=== PATIENT | female | born 1985 | race Caucasian/White ===

== ENCOUNTER 2018-05-15 17:58 | Emergency (ER) | payer OTHER ==
[2018-05-15] MEDS ORDERED: Ketorolac 30 MG/ML SDV IVPUSH ONE (19:18)
[2018-05-15] MEDS ORDERED: Ondansetron 4 MG/2 ML SDV IVPUSH ONE (19:18)
--- NOTE | 2018-05-15 19:27 | EDM.PDOC ---
ED HPI GENERAL MEDICAL PROBLEM - General Chief Complaint: Chest Pain Stated Complaint: CHEST PAIN Time Seen by Provider: 05/15/18 18:19 Source of Information: Reports: Patient History Limitations: Reports: No Limitations - History of Present Illness INITIAL COMMENTS - FREE TEXT/NARRATIVE: 32 yo F comes in today w/ officer from half-way for evaluation of chest pain. She states the pain is constant and started today at 4:30pm, random onset and constant. She has h/o chest pain in the past but "never pain that goes to other places". She states the pain radiates from the left epigastric region to the left hip and left arm. She also complains of SOLIMAN, chills, metallic taste in her mouth, fatigue, nausea. She denies taking any new medication, change in diet, dental issues, fever, vomiting, diarrhea, sore throat, cough, or GI/ symptoms. Denies any recent trauma. Tried Naproxen earlier today with no relief. She does have a h/o CHF. Grandmother also had a h/o CHF and HI at 53yo. No other complaints at this time. Epigastric Pain Score (Numeric/FACES): 8 - Related Data Allergies Allergy/AdvReac Type Severity Reaction Status Date / Time cephalexin Allergy Cannot Verified 05/15/18 18:11 Remember Home Meds: Home Meds Docusate Sodium 100 mg PO QPM 05/15/18 [History] FLUoxetine HCl [Prozac] 40 mg PO DAILY 05/15/18 [History] Furosemide [Lasix] 20 mg PO DAILY 05/15/18 [History] Naproxen 500 mg PO BIDAC PRN 05/15/18 [History] Potassium Chloride 10 meq PO QAM 05/15/18 [History] QUEtiapine [SEROquel] 50 mg PO QAM 05/15/18 [History] QUEtiapine [SEROquel] 200 mg PO QPM 05/15/18 [History] busPIRone [Buspar] 10 mg PO BID 05/15/18 [History] hydrOXYzine pamoate [Hydroxyzine Pamoate] 50 mg PO BID 05/15/18 [History] Past Medical History Cardiovascular History: Reports: Heart Failure, High Cholesterol Gastrointestinal History: Reports: Hepatitis Other Gastrointestinal History: chronic viral hepatiits C [employer] History: Reports: - Infectious Disease History Infectious Disease History: Reports: Hepatitis C - Past Surgical History HEENT Surgical History: Reports: Tonsillectomy Other HEENT Surgeries/Procedures: wears glasses Female Surgical History: Reports: Ureteral Stent Social & Family History - Tobacco Use Smoking Status *Q: Former Smoker Used Tobacco, but Quit: Yes Month/Year Tobacco Last Used: April 2018 - Caffeine Use Caffeine Use: Reports: Coffee - Recreational Drug Use Recreational Drug Use: Yes Drug Use in Last 12 Months: Yes ED ROS GENERAL - Review of Systems Review Of Systems: ROS reveals no pertinent complaints other than HPI. ED EXAM, GENERAL - Physical Exam Exam: See Below Exam Limited By: No Limitations General Appearance: Alert, WD/WN, Mild Distress Eye Exam: Bilateral Eye: EOMI, Normal Inspection, PERRL Ears: Normal External Exam, Normal Canal, Hearing Grossly Normal Nose: Normal Inspection, Normal Mucosa, No Blood Throat/Mouth: Normal Inspection, Normal Lips, Normal Teeth, Normal Gums, Normal Oropharynx, Normal Voice, No Airway Compromise Head: Atraumatic, Normocephalic Neck: Normal Inspection, Supple, Non-Tender, Full Range of Motion Respiratory/Chest: No Respiratory Distress, Lungs Clear, Normal Breath Sounds, No Accessory Muscle Use, Chest Non-Tender Cardiovascular: Normal Peripheral Pulses, No Edema, No Gallop, No JVD, No Murmur , No Rub, Tachycardia Peripheral Pulses: 4+: Posterior Tibial (L), Posterior Tibial (R), Dorsalis Pedis (L), Dorsalis Pedis (R) GI/Abdominal: Normal Bowel Sounds, Soft, Non-Tender, No Organomegaly, No Distention, No Abnormal Bruit, No Mass Back Exam: Normal Inspection Extremities: Normal Inspection, Normal Range of Motion, Non-Tender, Normal Capillary Refill, No Pedal Edema Neurological: Alert, Oriented, CN II-XII Intact, Normal Cognition, Normal Gait, Normal Reflexes, No Motor/Sensory Deficits Psychiatric: Normal Affect, Normal Mood Skin Exam: Warm, Dry, Intact, Normal Color, No Rash EKG INTERPRETATION EKG Date: 05/15/18 Rhythm: NSR Mission: LAD-Left Mission Deviation (borderline) P-Wave: Present QRS: Normal ST-T: Normal QT: Normal Course - Vital Signs Last Recorded V/S: Last Vital Signs Temp 98.2 F 05/15/18 18:04 Pulse 82 05/15/18 18:04 Resp 18 03/07/19 18:04 BP 125/85 05/15/18 18:04 Pulse Ox 98 05/15/18 18:04 - Orders/Labs/Meds Orders: Active Orders 24 hr Category Date Time Status EKG 12 Lead [EKG Documentation Completion] [RC] URGENT Care 05/15/18 18:48 Active Chest 1V Frontal [CR] Stat Exams 05/15/18 19:17 Taken Labs: Laboratory Tests 05/15/18 05/15/18 05/15/18 Range/Units 18:40 18:40 18:40 WBC 8.19 (3.98-10.04) K/mm3 RBC 4.85 (3.98-5.22) M/mm3 Hgb 14.1 (11.2-15.7) gm/L Hct 41.6 (34.1-44.9) % MCV 85.8 (79.4-94.8) fl MCH 29.1 (25.6-32.2) pg MCHC 33.9 (32.2-35.5) g/dl RDW Std Deviation 44.5 (36.4-46.3) fL Plt Count 371 H (182-369) K/mm3 MPV 9.2 L (9.4-12.3) fl Neut % (Auto) 51.0 (34.0-71.1) % Lymph % (Auto) 34.8 (19.3-51.7) % Walton % (Auto) 9.4 (4.7-12.5) % Eos % (Auto) 4.4 (0.7-5.8) Baso % (Auto) 0.4 (0.1-1.2) % Neut # (Auto) 4.18 (1.56-6.13) K/mm3 Lymph # (Auto) 2.85 (1.18-3.74) K/mm3 Walton # (Auto) 0.77 H (0.24-0.36) K/mm3 Eos # (Auto) 0.36 (0.04-0.36) K/mm3 Baso # (Auto) 0.03 (0.01-0.08) K/mm3 Sodium 140 (136-145) mEq/L Potassium 3.7 (3.5-5.1) mEq/L Chloride 105 (98-107) mEq/L Carbon Dioxide 24 (21-32) mEq/L Anion Gap 14.7 (5-15) BUN 25 H (7-18) mg/dL Creatinine 0.8 (0.55-1.02) mg/dL Est Cr Clr Drug Dosing 99.08 mL/min Estimated GFR (MDRD) > 60 (>60) mL/min BUN/Creatinine Ratio 31.3 H (14-18) Glucose 96 (74-106) mg/dL Calcium 9.0 (8.5-10.1) mg/dL Total Bilirubin 0.3 (0.2-1.0) mg/dL AST 24 (15-37) U/L ALT 50 (14-59) U/L Alkaline Phosphatase 90 (46-116) U/L Troponin I < 0.017 (0.00-0.056) ng/mL C-Reactive Protein < 0.2 (<1.0) mg/dL NT-Pro-B Natriuret Pep 18 (0-125) pg/mL Total Protein 7.5 (6.4-8.2) g/dl Albumin 3.8 (3.4-5.0) g/dl Globulin 3.7 gm/dL Albumin/Globulin Ratio 1.0 (1-2) HCG, Quant mIU/mL 05/15/18 Range/Units 18:40 WBC (3.98-10.04) K/mm3 RBC (3.98-5.22) M/mm3 Hgb (11.2-15.7) gm/L Hct (34.1-44.9) % MCV (79.4-94.8) fl MCH (25.6-32.2) pg MCHC (32.2-35.5) g/dl RDW Std Deviation (36.4-46.3) fL Plt Count (182-369) K/mm3 MPV (9.4-12.3) fl Neut % (Auto) (34.0-71.1) % Lymph % (Auto) (19.3-51.7) % Walton % (Auto) (4.7-12.5) % Eos % (Auto) (0.7-5.8) Baso % (Auto) (0.1-1.2) % Neut # (Auto) (1.56-6.13) K/mm3 Lymph # (Auto) (1.18-3.74) K/mm3 Walton # (Auto) (0.24-0.36) K/mm3 Eos # (Auto) (0.04-0.36) K/mm3 Baso # (Auto) (0.01-0.08) K/mm3 Sodium (136-145) mEq/L Potassium (3.5-5.1) mEq/L Chloride (98-107) mEq/L Carbon Dioxide (21-32) mEq/L Anion Gap (5-15) BUN (7-18) mg/dL Creatinine (0.55-1.02) mg/dL Est Cr Clr Drug Dosing mL/min Estimated GFR (MDRD) (>60) mL/min BUN/Creatinine Ratio (14-18) Glucose (74-106) mg/dL Calcium (8.5-10.1) mg/dL Total Bilirubin (0.2-1.0) mg/dL AST (15-37) U/L ALT (14-59) U/L Alkaline Phosphatase (46-116) U/L Troponin I (0.00-0.056) ng/mL C-Reactive Protein (<1.0) mg/dL NT-Pro-B Natriuret Pep (0-125) pg/mL Total Protein (6.4-8.2) g/dl Albumin (3.4-5.0) g/dl Globulin gm/dL Albumin/Globulin Ratio (1-2) HCG, Quant < 1.0 mIU/mL Meds: Medications Discontinued Medications Generic Name Dose Route Start Last Admin Trade Name Freq PRN Reason Stop Dose Admin Al Hydroxide/Mg Hydroxide 30 0 ml 05/15/18 20:03 05/15/18 20:15 ml/ Lidocaine HCl 15 ml PO 05/15/18 20:04 45 ml ONETIME ONE Administration Sodium Chloride 1,000 mls @ 999 mls/hr 05/15/18 19:30 05/15/18 19:30 Normal Saline IV 999 mls/hr ASDIRECTED LORNEA Administration Ketorolac Tromethamine 30 mg 05/15/18 19:18 05/15/18 19:33 Toradol IVPUSH 05/15/18 19:19 30 mg ONETIME ONE Administration Ondansetron HCl 4 mg 05/15/18 19:18 05/15/18 19:31 Zofran IVPUSH 05/15/18 19:19 4 mg ONETIME ONE Administration - Re-Assessments/Exams Free Text/Narrative Re-Assessment/Exam: EKG ordered 05/15/18 19:39 I have ordered CBC, CMP, CRP, BNP, Troponin EKG WNL CXR pending 05/15/18 20:01 CBC and CMP WNL CRP <0.2 BNP 18 Troponin <0.017 Labs are overall benign. No sign of infectious process or cardiac issue. Pt is feeling slightly better after Toradol. Will try GI Cocktail to see if that provides relief. 05/15/18 20:15 CXR reviewed by myself and Dr. Lindsey and Dr. Pack- WNL, nothing acute seen. 05/15/18 20:41 Checked in on the patient. No change with the GI cocktail. At this point, the cause of her symptoms is unclear. Cardiac and Infectious workup were negative, however, so it seems reasonable to send her back. She understands and agrees with this plan. Departure - Departure Time of Disposition: 20:42 Disposition: Home, Self-Care 01 Condition: Good Clinical Impression: Epigastric pain Instructions: Nonspecific Chest Pain, [id number] Referrals: Deborah Flowers, MARCELA [Primary Care Provider] - Forms: ED Department Discharge Additional Instructions: You were seen in the ED today for chest pain, nausea, and metallic taste in your mouth. Infectious and cardiac workup were negative. At this time, there seems to be no emergent reason for your symptoms. Recommend follow up with your primary care physician. Please return to ED if new or worsening symptoms. - My Orders Last 24 Hours: My Active Orders 05/15/18 18:48 EKG 12 Lead [EKG Documentation Completion] [RC] URGENT 05/15/18 19:17 Chest 1V Frontal [CR] Stat - Assessment/Plan Last 24 Hours: My Active Orders 05/15/18 18:48 EKG 12 Lead [EKG Documentation Completion] [RC] URGENT 05/15/18 19:17 Chest 1V Frontal [CR] Stat
[2018-05-15] MEDS ORDERED: Sodium Chloride 0.9% 1,000 ML IV SCH (19:30)
[2018-05-15] MEDS ORDERED: Alum Hydrox/Mag Hydrox/Simeth 30 ML, Lidocaine 2% 15 ML PO ONE ×2 (20:03)
--- NOTE | 2018-05-16 06:09 | CR ---
Chest: Portable view of the chest was obtained. Comparison: No prior chest x-ray. Heart size and mediastinum are within normal limits. Lungs are clear with no acute parenchymal change. Bony structures are grossly intact. Impression: 1. Nothing acute is seen on portable chest x-ray. Diagnostic code #1
== END 2018-05-15 20:56 | disposition home or self-care (01) ==
LOC: JD.ED 17:58
DX: R10.13 Epigastric pain (principal); I50.9 Heart failure, unspecified; E78.00 Pure hypercholesterolemia, unspecified; Z79.899 Other long term (current) drug therapy; Z87.891 Personal history of nicotine dependence; Z88.1 Allergy status to other antibiotic agents
CPT/HCPCS: 36415; 71045; 80053; 83880; 84484; 84702; 85025; 86140; 93005; 99285; A9270; J1885; J2405; J7040; 93010; 99284